=== PATIENT | male | born 1960 ===

== ENCOUNTER 2017-03-11 13:17 | Emergency (ER) | payer SELFPAY ==
[2017-03-11 13:32] VITALS: BP 214/107
--- NOTE | 2017-03-11 14:10 | XRay Report ---
FINAL REPORT PROCEDURE: XR CHEST 1V AP TECHNIQUE: Chest radiograph anteroposterior view. CPT 93189 HISTORY: Shortness of breath COMPARISON: No prior studies are available for comparison. FINDINGS: Heart: Normal. Mediastinum/Vessels: Normal. Lungs/Pleural space: There is a 1 centimeter rounded opacity projecting over the medial left lung apex, possibly related to the end of the 1st rib or calcified nodule. No infiltrate, effusion, or pneumothorax. Bony thorax: No acute osseous abnormality. Life support devices: None. IMPRESSION: No acute cardiopulmonary abnormality. 1 centimeter nodular density projects over the medial left lung apex, possibly related to the end of the left 1st rib versus a calcified nodule.
[2017-03-11 14:14] LABS: Hematocrit 44.4 % (35.5-45.6); Hemoglobin 14.7 gm/dl (11.8-15.2); Mean Corpuscular HGB Conc 33 % (32-34); Mean Corpuscular Hemoglobin 31 pg (28-32); Mean Corpuscular Volume 94 fl (84-94); Platelet Count 166 K/mm3 (140-440); Red Blood Count 4.74 M/mm3 (3.65-5.03); Red Cell Distribution Width 13.7 % (13.2-15.2)
[2017-03-11 14:31] LABS: BUN/Creatinine Ratio 17; Blood Urea Nitrogen 12 mg/dL (9-20); Calcium 8.5 mg/dL (8.4-10.2); Hemolysis Index 28
[2017-03-11 15:05] LABS: Band Neutrophils # (Manual) 0.1 K/mm3; Basophils % (Manual) 0 % (0.0-1.8); Platelet Estimate Consistent w Auto; RBC Morphology Normal; Total Cells Counted 100
== END 2017-03-11 14:30 | disposition left against medical advice (07) ==
LOC: ED 13:17
DX: R05 Cough (principal); M79.1 Myalgia; Z53.21 Procedure and treatment not carried out due to patient leaving prior to being seen by health care provider
CPT/HCPCS: 36415; 71045; 80048; 84484; 85007; 85025; 93005; 93010